=== PATIENT | female | born 1960 | race Caucasian/White ===

== ENCOUNTER 2016-11-22 09:00 | Inpatient (IN) | payer BC ==
[~2016-11-22] VITALS: Ht 154.9 cm; Wt 89.8 kg
[2016-11-22] MEDS ORDERED: LEVO150T8 PO (09:57)
[2016-11-22] MEDS ORDERED: ATEN-41 PO ×2 (09:57→12:45)
[2016-11-22] MEDS ORDERED: ALVIMOPAN 12 MG CAPSULE PO ONE ×2 (10:46→11:30)
[2016-11-22] MEDS ORDERED: cefOXitin SODIUM 2 GM in D5W 100 ML IV ONE (11:30)
[2016-11-22] MEDS ORDERED: GLUCAGON,HUMAN RECOMBINANT 1 MG VIAL IV ONE (12:00)
[2016-11-22] MEDS ORDERED: ROCURONIUM BROMIDE 10 MG/ML (ZEMURON) IV ONE (12:00)
[2016-11-22] MEDS ORDERED: MIDAZOLAM HCL 5 MG/5 ML VIAL IVP ONE (12:00)
[2016-11-22] MEDS ORDERED: NS 1000 ML BAG IV ONE (12:00)
[2016-11-22] MEDS ORDERED: fentaNYL CITRATE 250 MCG/5 ML AMP IV ONE (12:00)
[2016-11-22] MEDS ORDERED: ONDANSETRON HCL 4 MG/2 ML VIAL IVP ONE (12:00)
[2016-11-22] MEDS ORDERED: BUPIVACAINE LIPOSOME/PF 266 MG/20 ML VIAL INFIL ONE (12:00)
[2016-11-22] MEDS ORDERED: LR 1,000 ML IV.SOLN IV ONE (12:00)
[2016-11-22] MEDS ORDERED: NS IRRIG SOLN 1000 ML IR ONE (12:00)
[2016-11-22] MEDS ORDERED: PROPOFOL 200MG/ 20ML VIAL (DIPRIVAN) IV ONE (12:00)
[2016-11-22] MEDS ORDERED: LIDOCAINE MPF 2% 5mL VIAL INJ ONE (12:00)
[2016-11-22] MEDS ORDERED: DEXAMETHASONE SOD PHOSPHATE 4 MG/ML VIAL IVP ONE (12:00)
[2016-11-22] MEDS ORDERED: GLYCOPYRROLATE 0.2 MG/ML VIAL IJ ONE (12:00)
[2016-11-22] MEDS ORDERED: SEVOFLURANE 15 MIN GAS INH ONE (12:00)
[2016-11-22] MEDS ORDERED: cefOXitin 2 GM IVPB PREMIX 50 ML IV ONE (12:00)
[2016-11-22] MEDS ORDERED: NEOSTIGMINE METHYLSULFATE 1 MG/ML, 10 ML VIAL IVP ONE (12:00)
[2016-11-22] MEDS ORDERED: KETOROLAC TROMETHAMINE 30 MG VIAL IVP ONE (12:00)
[2016-11-22] MEDS ORDERED: ALBU8.5H8 INH (12:45)
[2016-11-22] MEDS ORDERED: LORA0.5T PO (12:45)
[2016-11-22] MEDS ORDERED: LEVO75TA7 PO (12:45)
[2016-11-22] MEDS ORDERED: MONT10TA25 PO (12:45)
[2016-11-22] MEDS ORDERED: LR 1,000 ML IV SCH (13:18)
[2016-11-22] MEDS ORDERED: MEPERIDINE HCL/PF 25 MG/ML DISP.SYRIN IVP PRN (13:30)
[2016-11-22] MEDS ORDERED: HYDROmorphone 2 MG/ML VIAL IVP PRN ×2 (13:30)
[2016-11-22] MEDS ORDERED: HYDROmorphone 1 MG INJ. 1 MG/ML AMPUL IVP PRN (13:30)
[2016-11-22] MEDS ORDERED: ACETAMINOPHEN 325 MG TABLET PO PRN (16:00)
[2016-11-22] MEDS ORDERED: HYDROcodone/ACETAMIN 5-325 MG TAB (NORCO/ VICODIN) PO PRN (16:00)
[2016-11-22] MEDS ORDERED: HYDROmorphone 2 MG/ML VIAL ONE ×2 (16:21→16:48)
[2016-11-22 17:14] VITALS: BP_SYST 141
[2016-11-22 17:25] LABS: HEMATOCRIT 37.3 % (36-48); HEMOGLOBIN 12.3 g/dL (12.0-16.0)
[2016-11-22 17:29] LABS: CALCIUM 7.9 mg/dL (8.4-11.0); CREATININE 0.77 mg/dL (0.55-1.30); POTASSIUM 3.6 mmol/L (3.5-5.1)
[2016-11-22] MEDS: D5/0.45 NS 1,000 ML IV SCH (18:01)
[2016-11-22 20:00] VITALS: BP_SYST 141
[2016-11-22] MEDS: cefOXitin SODIUM 2 GM in D5W 100 ML IV SCH (21:16)
[2016-11-22] MEDS: ALVIMOPAN 12 MG CAPSULE PO SCH (21:18)
[2016-11-22] MEDS: FAMOTIDINE PF 20 MG/2 ML VIAL IVP SCH (21:19)
[2016-11-22] MEDS: HYDROmorphone 1 MG INJ. 1 MG/ML AMPUL IVP PRN ×2 (21:20→23:52)
[2016-11-22] MEDS: ONDANSETRON HCL 4 MG/2 ML VIAL IVP PRN (21:21)
[2016-11-23 01:24] VITALS: BP_SYST 131
[2016-11-23] MEDS: HYDROmorphone 1 MG INJ. 1 MG/ML AMPUL IVP PRN ×7 (03:50→22:37)
[2016-11-23] MEDS: ONDANSETRON HCL 4 MG/2 ML VIAL IVP PRN (03:51)
[2016-11-23] MEDS: D5/0.45 NS 1,000 ML IV SCH ×2 (04:26→17:14)
[2016-11-23 05:35] VITALS: BP_SYST 121
[2016-11-23 06:39] LABS: HEMATOCRIT 32.4 % (36-48); HEMOGLOBIN 10.7 g/dL (12.0-16.0); MEAN CORPUSCULAR HEMOGLOBIN 25 pg (27-31); MEAN CORPUSCULAR HGB CONC 33 % (32-36); MEAN CORPUSCULAR VOLUME 77 fL (79.0-98.0); PLATELET COUNT (AUTO) 239 K/uL (130-430); RED BLOOD CELL COUNT(AUTO) 4.22 MIL/uL (4.2-6.2); RED CELL DISTRIBUTION WIDTH 14.3 % (9.0-15.0)
[2016-11-23 06:44] LABS: ALBUMIN 3.3 g/dL (3.4-4.8); CALCIUM 8.1 mg/dL (8.4-11.0); CREATININE 0.63 mg/dL (0.55-1.30); POTASSIUM 4.3 mmol/L (3.5-5.1); TOTAL BILIRUBIN 0.4 mg/dL (0.0-1.0); TOTAL PROTEIN, SERUM 6.8 g/dL (6.4-8.3)
[2016-11-23 07:13] LABS: WHITE BLOOD COUNT (AUTO) 12.9 K/uL (4.8-10.8)
[2016-11-23 08:00] VITALS: BP_SYST 129
[2016-11-23] MEDS: ALVIMOPAN 12 MG CAPSULE PO SCH ×2 (08:59→20:35)
[2016-11-23] MEDS: ENOXAPARIN SODIUM 30 MG/0.3 ML SYRINGE SUBCUT SCH (08:59)
[2016-11-23] MEDS: cefOXitin SODIUM 2 GM in D5W 100 ML IV SCH (09:00)
[2016-11-23] MEDS: FAMOTIDINE PF 20 MG/2 ML VIAL IVP SCH ×2 (09:00→20:34)
[2016-11-23 09:48] LABS: ATYPICAL LYMPHOCYTES % 0 % (0-0); BAND % (MANUAL) 2 % (0-6); BASOPHILS % (MANUAL) 0 % (0-2); EOSINOPHILS % (MANUAL) 0 % (0-7); LYMPHOCYTES % (MANUAL) 10 % (20-46); MONOCYTES % (MANUAL) 6 % (0-11)
[2016-11-23] MEDS: METOCLOPRAMIDE HCL 10 MG/2 ML VIAL IVP SCH ×3 (11:02→23:59)
[2016-11-23 12:18] VITALS: BP_SYST 125
[2016-11-23 16:05] VITALS: BP_SYST 134
[2016-11-23 20:00] VITALS: BP_SYST 154
[2016-11-24] VITALS (7 sets, daily range): BP systolic 126–155
[2016-11-24] MEDS: D5/0.45 NS 1,000 ML IV SCH ×3 (02:48→17:46)
[2016-11-24] MEDS: HYDROmorphone 1 MG INJ. 1 MG/ML AMPUL IVP PRN ×5 (03:19→23:56)
[2016-11-24 06:38] LABS: CREATININE 0.61 mg/dL (0.55-1.30); POTASSIUM 3.7 mmol/L (3.5-5.1)
[2016-11-24] MEDS: METOCLOPRAMIDE HCL 10 MG/2 ML VIAL IVP SCH ×4 (06:55→23:55)
[2016-11-24 07:04] LABS: BASOPHILS % (AUTO) 0.3 % (0.0-2.0); EOSINOPHILS % (AUTO) 0.3 % (0.0-4.0); HEMOGLOBIN 10.7 g/dL (12.0-16.0); LYMPHOCYTES # (AUTO) 1.4 K/uL (1.0-5.5); LYMPHOCYTES % (AUTO) 14.2 % (20.5-51.5); MEAN CORPUSCULAR HEMOGLOBIN 26 pg (27-31); MEAN CORPUSCULAR HGB CONC 34 % (32-36); MEAN CORPUSCULAR VOLUME 77 fL (79.0-98.0); MONOCYTES # (AUTO) 0.7 K/uL (0.0-1.0); MONOCYTES % (AUTO) 7.3 % (1.7-9.3); NEUTROPHILS # (AUTO) 7.7 K/uL (1.8-7.7); NEUTROPHILS % (AUTO) 77.9 % (40.0-70.0); PLATELET COUNT (AUTO) 215 K/uL (130-430); RED BLOOD CELL COUNT(AUTO) 4.06 MIL/uL (4.2-6.2); WHITE BLOOD COUNT (AUTO) 9.8 K/uL (4.8-10.8)
[2016-11-24] MEDS: ALVIMOPAN 12 MG CAPSULE PO SCH ×2 (10:08→21:06)
[2016-11-24] MEDS: HYDROcodone/ACETAMIN 5-325 MG TAB (NORCO/ VICODIN) PO PRN ×2 (10:11→21:07)
[2016-11-24] MEDS: ENOXAPARIN SODIUM 30 MG/0.3 ML SYRINGE SUBCUT SCH (10:12)
[2016-11-24] MEDS: FAMOTIDINE PF 20 MG/2 ML VIAL IVP SCH ×2 (10:13→21:07)
[2016-11-24] MEDS: ONDANSETRON HCL 4 MG/2 ML VIAL IVP PRN ×2 (13:27→14:24)
[2016-11-25 00:18] VITALS: BP_SYST 129
[2016-11-25] MEDS: HYDROmorphone 1 MG INJ. 1 MG/ML AMPUL IVP PRN ×2 (01:09→04:28)
[2016-11-25] MEDS: HYDROcodone/ACETAMIN 5-325 MG TAB (NORCO/ VICODIN) PO PRN ×2 (02:32→10:13)
[2016-11-25 04:00] VITALS: BP_SYST 129
[2016-11-25] MEDS: D5/0.45 NS 1,000 ML IV SCH ×2 (04:28→13:46)
[2016-11-25] MEDS: METOCLOPRAMIDE HCL 10 MG/2 ML VIAL IVP SCH ×2 (06:02→12:00)
[2016-11-25 08:00] VITALS: BP_SYST 152
[2016-11-25] MEDS: ALVIMOPAN 12 MG CAPSULE PO SCH (10:11)
[2016-11-25] MEDS: ENOXAPARIN SODIUM 30 MG/0.3 ML SYRINGE SUBCUT SCH (10:12)
[2016-11-25] MEDS ORDERED: ALPRAZolam 0.25 MG TABLET PO PRN (10:45)
[2016-11-25] MEDS: FAMOTIDINE PF 20 MG/2 ML VIAL IVP SCH (11:50)
[2016-11-25 12:04] VITALS: BP_SYST 145
[2016-11-25] MEDS ORDERED: ATENOLOL 25 MG TABLET(TENORMIN) PO ONE (12:30)
[2016-11-25] MEDS ORDERED: LEVOTHYROXINE SODIUM 0.15 MG TABLET PO ONE (12:30)
[2016-11-25] MEDS ORDERED: LEVOTHYROXINE SODIUM 0.05 MG TABLET PO ONE (12:30)
[2016-11-25 12:51] VITALS: BP_SYST 145
[2016-11-25] MEDS ORDERED: MONTELUKAST 10 MG TABLET PO SCH (18:00)
[2016-11-26] MEDS ORDERED: LEVOTHYROXINE SODIUM 0.05 MG TABLET PO SCH (07:00)
[2016-11-26] MEDS ORDERED: ATENOLOL 25 MG TABLET(TENORMIN) PO SCH (09:00)
== END 2016-11-25 14:05 | disposition home or self-care (01) | DRG 330 ==
LOC: SMU 10:34
PROVIDERS: ADMIT Colon & Rectal Surgery; ATTEND Colon & Rectal Surgery
PROC: 0UB94ZZ Excision of Uterus, Percutaneous Endoscopic Approach (ICD-10-PCS; 2016-11-22)
PROC: 0WQF0ZZ Repair Abdominal Wall, Open Approach (ICD-10-PCS; 2016-11-22)
PROC: 0DTJ4ZZ Resection of Appendix, Percutaneous Endoscopic Approach (ICD-10-PCS; 2016-11-22)
PROC: 0DTG4ZZ Resection of Left Large Intestine, Percutaneous Endoscopic Approach (ICD-10-PCS; principal; 2016-11-22 11:30)
DX: K57.20 Diverticulitis of large intestine with perforation and abscess without bleeding (principal); K42.0 Umbilical hernia with obstruction, without gangrene; K43.6 Other and unspecified ventral hernia with obstruction, without gangrene; D25.9 Leiomyoma of uterus, unspecified; J45.909 Unspecified asthma, uncomplicated; I10 Essential (primary) hypertension; E66.01 Morbid (severe) obesity due to excess calories; D56.3 Thalassemia minor; E03.9 Hypothyroidism, unspecified; R05 Cough; N83.201 Unspecified ovarian cyst, right side; G43.909 Migraine, unspecified, not intractable, without status migrainosus; Z82.3 Family history of stroke; Z80.0 Family history of malignant neoplasm of digestive organs; Z80.3 Family history of malignant neoplasm of breast; Z68.37 Body mass index [BMI] 37.0-37.9, adult
CPT/HCPCS: 36415; 80048; 80053; 85007; 85018-TC; 85025; 85027; 87081; 88304; 88305; 88307; 97110-GP; 97116-GP; 97530-GP; C9290; J0694; J1100; J1170; J1610; J1650; J1885; J2001; J2250; J2405; J2704; J2710; J2765; J3010; J3490; J7030; J7060; J7120

== ENCOUNTER 2017-03-08 06:00 | Day surgery (SDC) | payer BC ==
[2017-03-07 11:19] LABS: BILIRUBIN,URINE NEGATIVE (NEGATIVE); BLOOD, URINE 3+ (NEGATIVE); CLARITY/URINE SL HAZY (CLEAR); COLOR,URINE YELLOW (YELLOW); GLUCOSE,URINE NEGATIVE (NEGATIVE); KETONES,URINE NEGATIVE (NEGATIVE); LEUKOCYTE ESTERASE ,URINE NEGATIVE (NEGATIVE); NITRITE, URINE NEGATIVE (NEGATIVE); PROTEIN URINE NEGATIVE (NEGATIVE); UROBILINOGEN,URINE 0.2 (0.2-1.0)
[2017-03-07 11:22] LABS: BASOPHILS % (AUTO) 0.5 % (0.0-2.0); EOSINOPHILS # (AUTO) 0.3 K/uL (0.0-0.4); EOSINOPHILS % (AUTO) 5.3 % (0.0-4.0); HEMATOCRIT 38.1 % (36-48); HEMOGLOBIN 12.4 g/dL (12.0-16.0); LYMPHOCYTES # (AUTO) 2.2 K/uL (1.0-5.5); LYMPHOCYTES % (AUTO) 33.3 % (20.5-51.5); MEAN CORPUSCULAR HEMOGLOBIN 24 pg (27-31); MEAN CORPUSCULAR HGB CONC 33 % (32-36); MEAN CORPUSCULAR VOLUME 74 fL (79.0-98.0); MONOCYTES # (AUTO) 0.6 K/uL (0.0-1.0); NEUTROPHILS # (AUTO) 3.5 K/uL (1.8-7.7); NEUTROPHILS % (AUTO) 51.9 % (40.0-70.0); PLATELET COUNT (AUTO) 309 K/uL (130-430); RED BLOOD CELL COUNT(AUTO) 5.16 MIL/uL (4.2-6.2); RED CELL DISTRIBUTION WIDTH 14.9 % (9.0-15.0); WHITE BLOOD COUNT (AUTO) 6.6 K/uL (4.8-10.8)
[2017-03-07 11:34] LABS: BACTERIA,URINE RARE /HPF (None Seen); MUCUS,URINE 1+ /LPF (None Seen); WBC,URINE 0-3 /HPF (0-3)
[2017-03-07 11:40] LABS: ALBUMIN 3.6 g/dL (3.4-4.8); CALCIUM 9.6 mg/dL (8.4-11.0); CREATININE 0.62 mg/dL (0.55-1.30); POTASSIUM 4.2 mmol/L (3.5-5.1); TOTAL BILIRUBIN 0.4 mg/dL (0.0-1.0)
[~2017-03-08] VITALS: Ht 154.9 cm; Wt 88.5 kg
[~2017-03-08 06:00] MED LIST: ALBU8.5H8 INH; ATEN-41 PO; LEVO150T8 PO; LEVO75TA7 PO; LORA0.5T PO; MONT10TA25 PO
[2017-03-08] MEDS ORDERED: NS IRRIG SOLN 1000 ML IR ONE (07:02)
[2017-03-08] MEDS ORDERED: fentaNYL CITRATE/PF 100 MCG/2 ML AMP IVP ONE (07:02)
[2017-03-08] MEDS ORDERED: SEVOFLURANE 15 MIN GAS INH ONE (07:02)
[2017-03-08] MEDS ORDERED: MIDAZOLAM HCL 5 MG/5 ML VIAL IVP ONE (07:02)
[2017-03-08] MEDS ORDERED: ONDANSETRON HCL 4 MG/2 ML VIAL IVP ONE (07:02)
[2017-03-08] MEDS ORDERED: SILVER NITRATE APPLICATOR 1 STICK STICK..EA. TP ONE (07:02)
[2017-03-08] MEDS ORDERED: KETOROLAC TROMETHAMINE 30 MG VIAL IVP ONE (07:02)
[2017-03-08] MEDS ORDERED: LR 1,000 ML IV.SOLN IV ONE (07:02)
[2017-03-08] MEDS ORDERED: PROPOFOL 200MG/ 20ML VIAL (DIPRIVAN) IV ONE (07:02)
[2017-03-08] MEDS ORDERED: LR 1,000 ML IV SCH (08:01)
[2017-03-08] MEDS ORDERED: HYDROmorphone 1 MG INJ. 1 MG/ML AMPUL IVP PRN (08:15)
[2017-03-08] MEDS ORDERED: ONDANSETRON HCL 4 MG/2 ML VIAL IVP PRN ×2 (08:15→08:45)
[2017-03-08] MEDS ORDERED: KETOROLAC TROMETHAMINE 30 MG VIAL IVP PRN (08:15)
[2017-03-08] MEDS ORDERED: HYDROmorphone 2 MG/ML VIAL IVP PRN ×2 (08:15)
[2017-03-08] MEDS ORDERED: MEPERIDINE HCL/PF 25 MG/ML DISP.SYRIN IVP PRN ×2 (08:15)
[2017-03-08] MEDS ORDERED: PROMETHAZINE HCL 25 MG/ML AMP IM PRN ×2 (08:45)
[2017-03-08] MEDS ORDERED: IBUPROFEN 600 MG TABLET PO PRN (08:45)
[2017-03-08] MEDS ORDERED: OXYCODONE/ACETAMINOPHEN 5-325 TABLET PO PRN ×2 (08:45)
[2017-03-08 09:30] VITALS: BP_SYST 121
== END 2017-03-08 12:35 | disposition home or self-care (01) ==
LOC: SMU 06:00 → SDS 06:00
PROVIDERS: ATTEND Obstetrics & Gynecology
DX: N84.0 Polyp of corpus uteri (principal); N80.2 Endometriosis of fallopian tube; F41.9 Anxiety disorder, unspecified; Z80.0 Family history of malignant neoplasm of digestive organs; Z80.3 Family history of malignant neoplasm of breast; E03.9 Hypothyroidism, unspecified; G43.719 Chronic migraine without aura, intractable, without status migrainosus; D56.3 Thalassemia minor; E55.9 Vitamin D deficiency, unspecified; Z90.49 Acquired absence of other specified parts of digestive tract; Z98.890 Other specified postprocedural states; Z68.37 Body mass index [BMI] 37.0-37.9, adult; Z79.899 Other long term (current) drug therapy; I10 Essential (primary) hypertension; E66.9 Obesity, unspecified; J40 Bronchitis, not specified as acute or chronic; K57.92 Diverticulitis of intestine, part unspecified, without perforation or abscess without bleeding
CPT/HCPCS: 36415; 58558; 80053; 81000; 84703; 85025; 86886; 86900; 86901; 88305; C1819; J1885; J2250; J2405; J2704; J3010; J7120